=== PATIENT | female | born 1990 | race African-American/Black ===

== ENCOUNTER 2018-11-07 20:16 | Emergency (ER) | payer SELFPAY ==
[~2018-11-07] VITALS: Ht 160 cm; Wt 79.4 kg
[2018-11-07] MEDS ORDERED: HYDROCODONE/APAP 5MG-325MG TAB PO NR (21:00)
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
[2018-11-07] MEDS ORDERED: BACITRACIN ZINC 0.9GM TP ONE (22:42)
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
[2018-11-08 00:08] VITALS: BP 118/71
== END 2018-11-07 22:54 | disposition home or self-care (01) ==
LOC: ER 20:16
DX: M54.6 Pain in thoracic spine (principal); S23.3XXA Sprain of ligaments of thoracic spine, initial encounter; S40.812A Abrasion of left upper arm, initial encounter; V43.52XA Car driver injured in collision with other type car in traffic accident, initial encounter; Y99.0 Civilian activity done for income or pay
CPT/HCPCS: 71046